=== PATIENT | female | born 1965 | race Caucasian/White ===

== ENCOUNTER 2020-12-01 13:05 | Emergency (ER) | payer MEDICARE, MEDICAID, SELFPAY ==
--- NOTE | ~2020-12-01 | CT_ITS ---
EXAMINATION: CT brain wo con DATE: 12/01/2020 15:18 INDICATION: Altered mental status. History of hydrocephalus. TECHNIQUE: Computed tomography (CT) of the head was performed without intravenous contrast. The dose- length product was 681.00 mGy-cm. Automated exposure control and iterative reconstruction technique w ere employed. COMPARISON: CT dated 03/29/2019 FINDINGS: There is severe hydrocephalus. There is a ventriculostomy catheter extending from the left parietal location to the right lateral ventricle. 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 No acute intracranial hemorrhage, infarction, mass or mass effect. Paranasal sinuses and mastoids are pneumatized. No depressed skull fractures. There is intracranial atherosclerosis. IMPRESSION: 1. No acute intracranial abnormality. 2: Stable severe hydrocephalus with ventriculostomy tip in the right lateral ventricle. Reviewed, dictated and finalized at location A. IMPRESSION: 1. No acute intracranial abnormality. 2: Stable severe hydrocephalus with ventriculostomy tip in the right lateral ve ntricle.
[2020-12-01 13:53] VITALS: BP 133/62; PULSE 89; RESP 18; TEMP 36.8; O2SAT 97
[2020-12-01 14:12] LABS: Basophils Percent Auto 0.4 % (0.2-1.2); Hematocrit 41.8 % (37.0-47.0); Immature Granulocyte Absolute 0.01 K/mm3 (0.00-0.031); Immature Granulocyte Percent A 0.2 % (0-0.5); Lymphocytes Absolute Auto 0.82 K/mm3 (0.9-3.2); Mean Corpuscular HGB Conc 33.5 g/dl (32-36); Mean Corpuscular Hemoglobin 28.9 pg (26-34); Mean Corpuscular Volume 86.2 fl (80-100); Mean Platelet Volume 10.6 fl (7.4-10.4); Monocytes Absolute Auto 0.4 K/mm3 (0.1-0.6); Monocytes Percent Auto 8.5 % (2.6-8.5); Neutrophils Absolute Auto 3.6 K/mm3 (1.3-6.7); Neutrophils Percent Auto 73.9 % (45.5-73.1); Platelet Count Result 165 k/mm3 (150-375); Red Blood Count 4.85 M/mm3 (4.2-5.4); Red Cell Distribution Width 13.1 % (11.5-14.5); White Blood Count 4.8 K/mm3 (4.5-10.0)
[2020-12-01 14:31] LABS: Alanine Aminotransferase 29 U/L (4-35); Albumin Level 4.1 g/dL (3.5-5.1); Alkaline Phosphatase 118 U/L (38-126); Anion Gap 9 mmol/L (8-16); Aspartate Amino Transferase 37 U/L (14-36); Bilirubin,Total 0.7 mg/dL (0.2-1.3); Blood Urea Nitrogen 12 mg/dL (7-17); Carbon Dioxide 26 mmol/L (22-30); Chloride 102 mmol/L (98-107); Estimated CRCL calculation 106 ml/min; Estimated Glomerular Filt Rate > 60; Glucose 133 mg/dL (65-110); Potassium 3.4 mmol/L (3.4-5.0); Sodium 137 mmol/L (137-145)
[2020-12-01 15:15] VITALS: BP 131/72; PULSE 72; RESP 14; RESP 17; TEMP 36.7; O2SAT 98
--- NOTE | 2020-12-01 15:55 | ED.AMS ---
HPI - Altered Mental Status General Chief Complaint: Altered Mental Status Stated Complaint: altered mental status intermittently Time Seen by Provider: 12/01/20 14:51 Source: patient Mode of arrival: ambulatory Limitations: no limitations History of Present Illness HPI narrative: Patient is a 55-year-old female brought in by sister due to intermittent confusion and sleepiness for the past 3 days. Sister states that at times she can even hold her head up because she is so sleepy. Patient has a history of ventricular shunt. Patient is awake and oriented x4 upon arrival to the emergency room and has no complaints at this time. Patient denies any headache, dizziness, speech or visual disturbance, focal weakness or numbness, unsteady gait, chest pain, shortness of breath, abdominal pain, nausea, vomiting, diarrhea, urinary symptoms, fever or chills. Related Data Home Medications Medication Instructions Recorded Confirmed atorvastatin 12/01/20 12/01/20 cholecalciferol (vitamin D3) 25 mcg PO DAILY 12/01/20 12/01/20 [Vitamin D3] cyanocobalamin (vitamin B-12) mcg 12/01/20 donepezil mg 12/01/20 ezetimibe mg 12/01/20 metformin mg 12/01/20 oxybutynin chloride mg PO 12/01/20 prazosin 12/01/20 sitagliptin [Januvia] mg 12/01/20 triamterene-hydrochlorothiazid tablet 12/01/20 Review of Systems Review of Systems: All systems reviewed & are unremarkable except as noted in HPI and below Constitutional: Constitutional: Denies body ache(s), Denies chills, Denies excessive sweating, Denies fatigue, Denies fever(s), Denies headache(s), Denies lethargy, Denies malaise, Denies weakness and Denies weight loss Eyes: Eyes: Denies blurry vision, Denies change in vision and Denies loss of vision ENT: Denies dizziness, Denies ear discharge, Denies headache(s), Denies lip swelling, Denies epistaxis, Denies nasal congestion, Denies neck pain, Denies throat swelling and Denies tongue swelling Cardiovascular: Cardiovascular: Denies chest pain, Denies chest pain at rest, Denies chest pain with activity, Denies diaphoresis, Denies rapid heart rate, Denies edema, Denies irregular heart rhythm, Denies lightheadedness, Denies palpitations, Denies dyspnea and Denies dyspnea on exertion Respiratory: Respiratory: Denies chest congestion, Denies cough, Denies hemoptysis, Denies dyspnea and Denies dyspnea on exertion Gastrointestinal: Gastrointestinal: Denies abdominal pain, Denies melena, Denies hematochezia, Denies diarrhea, Denies nausea, Denies vomiting and Denies hematemesis Musculoskeletal: Musculoskeletal: Denies abnormal gait, Denies deformity, Denies joint swelling, Denies limited range of motion, Denies neck pain and Denies numbness Neurologic: Denies Abnormal speech present, Denies abnormal gait, Denies confusion, Denies dizziness, Denies headache(s), Denies focal weakness, Denies loss of vision, Denies numbness, Denies Other visual disturbances, Denies Sensory deficit (Neuro) and Denies weakness Psychiatric: Psychiatric: Denies confusion, Denies depression, Denies auditory hallucinations, Denies homicidal ideation and Denies suicidal ideation Endocrine: Endocrine: Denies cold intolerance, Denies excessive sweating, Denies fatigue, Denies heat intolerance and Denies palpitations Hematologic/Lymphatic: Hematologic/Lymphatic: Denies easy bleeding and Denies easy bruising Allergic/Immunologic: Allergic/Immunologic: Denies lip swelling, Denies throat swelling and Denies tongue swelling PMFSH Comments Past medical history: Ventricular shunt, diabetes, high blood pressure, hypertension, hyperlipidemia Family history: Hypertension Social history: Non-smoker no EtOH use no drug use, lives with sister who is her caregiver Exam Const: General: cooperative, healthy appearing, comfortable, no acute distress, well developed, alert and awake; No confusion Orientation/consciousness: oriented to person, oriented to place, oriented to time, patient oriented x3 an
[2020-12-01 16:23] LABS: Add Urine Microscopic? YES; Appearance Urine Clear (Clear); Bilirubin Urine Negative (Negative); Blood Urine Negative (Negative); Color Urine Yellow (Yellow); Glucose Urine UA Negative (Negative); Ketones Urine Negative (Negative); Leukocyte Esterase Ur Negative LEU/UL (Negative); Nitrate Urine Negative (Negative); Protein Urine 1+ mg/dL (Negative); RBC Urine 0-2 /hpf (0-2); Specific Grav Ur 1.018 (1.001-1.035); WBC Urine 0-3 /hpf
[2020-12-01 19:29] VITALS: BP 130/75; PULSE 78; RESP 16; TEMP 36.4; O2SAT 99
== END 2020-12-01 19:29 | disposition home or self-care (01) ==
PROVIDERS: Emergency Provider Emergency Medicine; PCP Physician Assistant
DX: R41.82 Altered mental status, unspecified (principal); E11.9 Type 2 diabetes mellitus without complications; I10 Essential (primary) hypertension; E78.5 Hyperlipidemia, unspecified; Z79.84 Long term (current) use of oral hypoglycemic drugs; G91.9 Hydrocephalus, unspecified; Z98.2 Presence of cerebrospinal fluid drainage device
CPT/HCPCS: 36415; 51701; 70450; 80053; 81001; 85025; 99284

== ENCOUNTER 2023-07-27 00:40 | Emergency (ER) | payer OTHER, SELFPAY ==
[2023-07-27] VITALS (13 sets, daily range): BP systolic 173–192; BP diastolic 79–96; PULSE 76; RESP 17; TEMP 36.8; O2SAT 94–97
--- NOTE | ~2023-07-27 | CT_ITS ---
EXAMINATION: CT brain wo con DATE: 07/27/2023 01:29 INDICATION: Altered mental status. Head injury. TECHNIQUE: Computed tomography (CT) of the head was performed without intravenous contrast. The mA wa s adjusted according to patient size. Iterative reconstruction technique was employed. The dose-lengt h product was 681.00 mGy-cm. COMPARISON: Head CT 12/01/2020 FINDINGS: There is diffuse brain volume loss. There is no intracranial hemorrhage, acute infarction, or abnormal intracranial mass lesion. The lateral and third ventricles are enlarged. There is a left- sided shunt with tip in body of right lateral ventricle. The orbits are normal. There is mild mucosal thickening in the ethmoid sinuses. The mastoid air cells are normal. IMPRESSION: 1. Diffuse brain volume loss. 2. Stable ventriculomegaly involving the lateral and third ventricles with shunt catheter in unchange d position. Reviewed, dictated and finalized at location A. IMPRESSION: 1. Diffuse brain volume loss. 2. Stable ventriculomegaly involving the lateral and third ventricles with shun t catheter in unchanged position.
--- NOTE | 2023-07-27 01:12 | ED.FALL ---
HPI - Fall General Chief Complaint: Fall <BERNICE Huerta Last Filed: 07/27/23 01:38> Stated Complaint: GLF, HEAD LAC <BERNICE Huerta Last Filed: 07/27/23 01:38> Time Seen by Provider: 07/27/23 01:01 <Ambika Carballo PA-C - Last Filed: 07/27/23 01:38> History of Present Illness HPI Narrative: 58-year-old female with history of diabetes and hypertension presents to the emergency department for a head injury that occurred just prior to arrival. Patient states she normally ambulates with a wheelchair and was transferred herself from her bed to her wheelchair when she became dizzy and fell to the floor. States she landed on her buttock but hit the back of her head against the bed frame. Denies losing consciousness, vision changes, focal numbness or weakness. She presents to the ED via EMS with the lac to the back of her head. Patient states she has chronic dizziness when attempting to stand and this is not abnormal for her. She denies chest pain or shortness of breath, nausea or vomiting, diarrhea. Last Tdap unknown. Patient denies other injuries acquired including neck pain or back pain. <BERNICE Huerta Last Filed: 07/27/23 01:38> Related Data Home Medications: Home Medications Medication Instructions Recorded Confirmed atorvastatin 40 mg tablet 12/01/20 12/01/20 cholecalciferol (vitamin D3) 25 25 mcg PO DAILY 12/01/20 12/01/20 mcg (1,000 unit) capsule (Vitamin D3) cyanocobalamin (vitamin B-12) 500 mcg 12/01/20 mcg tablet donepezil 10 mg tablet mg 12/01/20 ezetimibe 10 mg tablet mg 12/01/20 metformin 1,000 mg tablet mg 12/01/20 oxybutynin chloride 5 mg mg PO 12/01/20 tablet,extended release 24 hr prazosin 1 mg capsule 12/01/20 sitagliptin phosphate 100 mg mg 12/01/20 tablet (Januvia) triamterene 37.5 tablet 12/01/20 mg-hydrochlorothiazide 25 mg tablet <BERNICE Huerta Last Filed: 07/27/23 01:38> Allergies/Adverse Reactions: Allergies Allergy/AdvReac Type Severity Reaction Status Date / Time No Known Allergies Allergy Verified 07/27/23 00:47 <BERNICE Huerta Last Filed: 07/27/23 01:38> Review of Systems Review of Systems: CONSTITUTIONAL: Denies fever, chills, or sweats. EYES: Denies visual changes, redness, or discharge. ENT: Denies rhinorrhea, congestion, sore throat, or otalgia. CARDIOVASCULAR: Denies chest pain, palpitations, or edema. RESPIRATORY: Denies cough or dyspnea. GASTROINTESTINAL: Denies abdominal pain, nausea, vomiting, or diarrhea. GENITOURINARY: Denies dysuria or hematuria. SKIN: See HPI MUSCULOSKELETAL: Denies back pain, joint pain, or myalgia. NEUROLOGIC: See HPI PSYCHIATRIC: Denies anxiety or depression. <BERNICE Huerta Last Filed: 07/27/23 01:38> Exam Narrative: GENERAL: Well-appearing, well-nourished, and in no acute distress. HEAD: Normocephalic, atraumatic. EYES: PERRLA and EOMI. ENT: Nares clear, no rhinorrhea or epistaxis. Mucous membranes moist. NECK: No midline cervical spinous tenderness, step-offs or deformities BACK: No midline thoracolumbar spinous tenderness, step-offs or deformities CHEST: Clear to auscultation. No respiratory distress. HEART: Regular rate and rhythm. No murmur heard. Normal peripheral pulses. ABDOMEN: Soft, nontender, nondistended, normal active bowel sounds. EXTREMITIES: Normal range of motion. No edema. SKIN: 1 cm linear laceration to the left occiput, bleeding controlled. No deep structures or foreign bodies visualized. NEURO: No focal deficits. Alert and oriented x3. Moving all extremities spontaneously <BERNICE Huerta Last Filed: 07/27/23 01:38> Course [employer]/PA Physician Supervision For this patient encounter, I reviewed the [employer] or PA documentation, treatment plan, and medical decision making and had [id number] time with this patient. I performed all aspects of the MDM as documented. <Maria D Gilman
--- NOTE | 2023-07-27 01:19 | ECG_ITS ---
SEE SCANNED COPY FOR CONFIRMED REPORT MTDD
[2023-07-27 01:22] LABS: Basophils Absolute Auto 0.1 K/mm3 (0.0-0.1); Eosinophils Absolute Auto 0.4 K/mm3 (0-0.3); Eosinophils Percent Auto 3.3 % (0-4.4); Hematocrit 40.6 % (37.0-47.0); Hemoglobin 13.5 g/dL (12.0-15.0); Immature Granulocyte Absolute 0.04 K/mm3 (0.00-0.031); Immature Granulocyte Percent A 0.4 % (0-0.5); Lymphocytes Absolute Auto 1.61 K/mm3 (0.9-3.2); Lymphocytes Percent Auto 14.5 % (18.3-44.2); Mean Corpuscular HGB Conc 33.3 g/dl (32-36); Mean Corpuscular Hemoglobin 28.1 pg (26-34); Mean Corpuscular Volume 84.6 fl (80-100); Mean Platelet Volume 10.3 fl (7.4-10.4); Monocytes Absolute Auto 0.7 K/mm3 (0.1-0.6); Monocytes Percent Auto 6.6 % (2.6-8.5); Neutrophils Absolute Auto 8.2 K/mm3 (1.3-6.7); Neutrophils Percent Auto 74.2 % (45.5-73.1); Platelet Count Result 262 k/mm3 (150-375); Red Cell Distribution Width 13.3 % (11.5-14.5); White Blood Count 11.1 K/mm3 (4.5-10.0)
[2023-07-27] MEDS: ACETAMINOPHEN 500 MG TABLET 1000 MG PO (01:29)
[2023-07-27] MEDS: TETANUS,DIPHTHERIA,AC PERTUSSIS ADULT (0.5 ML) BOOSTRIX IM (01:30)
[2023-07-27] MEDS: SODIUM CHLORIDE 0.9% IV 1,000 ML 999 ML IV CONT (01:33)
[2023-07-27 01:36] LABS: Alanine Aminotransferase 36 U/L (6-35); Albumin Level 4.4 g/dL (3.5-5.1); Alkaline Phosphatase 178 U/L (38-126); Anion Gap 8 mmol/L (4-12); Aspartate Amino Transferase 34 U/L (14-36); Bilirubin,Total 0.6 mg/dL (0.2-1.3); Blood Urea Nitrogen 14 mg/dL (7-17); Calcium 9.4 mg/dL (8.4-10.2); Carbon Dioxide 27 mmol/L (22-30); Chloride 102 mmol/L (98-107); Estimated CRCL calculation 75 ml/min; Estimated Glomerular Filt Rate > 60; Glucose 227 mg/dL (65-110); Magnesium 1.6 mg/dL (1.6-2.3); Potassium 3.9 mmol/L (3.4-5.0); Sodium 137 mmol/L (137-145)
--- NOTE | 2023-07-27 02:22 | PC.NURSE ---
Pt assisted to bedside commode to provide urine sample.
[2023-07-27 02:30] LABS: Appearance Urine Clear (Clear); Bacteria Urine None Seen /hpf; Bilirubin Urine Negative (Negative); Blood Urine Negative (Negative); Color Urine Yellow (Yellow); Glucose Urine UA Negative (Negative); Ketones Urine Negative (Negative); Leukocyte Esterase Ur 2+ LEU/UL (Negative); Nitrate Urine Negative (Negative); Non Pathogenic Casts 0-2; Protein Urine Negative (Negative); RBC Urine 0-2 /hpf (0-2); Specific Grav Ur 1.013 (1.001-1.035); Squamous Epithelial Cell Urine Occasional /hpf (Few); WBC Urine 21-50 /hpf (0-3); pH Urine 5.5 (5.0-9.0)
[2023-07-27 02:43] LABS: Add Urine Microscopic? YES
--- NOTE | 2023-07-27 04:18 | PC.NURSE ---
Attempted to call report twice at 0415, and 0418, no answer. Patient alert and oriented x3, signed for discharge papers. Patient awaiting EMS to arrive to transport her back to the [place].
--- NOTE | 2023-07-27 04:23 | PC.NURSE ---
Called [place] again to call report, spoke to Cesia.
--- NOTE | 2023-07-27 04:26 | PC.NURSE ---
EMS here to transport patient back to the [place].
== END 2023-07-27 04:37 ==
PROVIDERS: Physician Assistant; Emergency Provider Emergency Medicine; PCP Physician Assistant
DX: S01.01XA Laceration without foreign body of scalp, initial encounter (principal); I10 Essential (primary) hypertension; E11.9 Type 2 diabetes mellitus without complications; Z79.84 Long term (current) use of oral hypoglycemic drugs; W05.0XXA Fall from non-moving wheelchair, initial encounter; Z23 Encounter for immunization
CPT/HCPCS: 12001; 36415; 70450; 80053; 81001; 83735; 85025; 87086; 87088; 90471; 90715; 93005; 96360; 96361; 99284; A9270; J7030